=== PATIENT | male | born 1960 | race Caucasian/White ===

== ENCOUNTER 2023-11-29 07:58 | Day surgery (SDC) | payer BC ==
[2023-11-29] MEDS ORDERED: Phenylephrine 0.5% Nasal Spray 15 ML Bot NAS ONE (07:59)
[2023-11-29] MEDS ORDERED: Lidocaine 2% 100 MG/5 ML Syringe IVPUSH ONE (07:59)
[2023-11-29] MEDS ORDERED: Propofol 200 MG/20 ML SDV IV ONE (07:59)
[2023-11-29] MEDS ORDERED: Sodium Chloride 0.9% 10 ML Syringe FLUSH PRN (08:15)
[2023-11-29] MEDS: Lactated Ringers 1,000 ML IV SCH (09:31)
[2023-11-29] MEDS: Simethicone Drops 40 MG/0.6 ML 30 ML Bottle ONE (11:15)
== END 2023-11-29 12:20 | disposition home or self-care (01) ==
LOC: FB.SDS 07:58
PROVIDERS: ATTEND Surgery
DX: D12.6 Benign neoplasm of colon, unspecified (principal); K57.31 Diverticulosis of large intestine without perforation or abscess with bleeding; I10 Essential (primary) hypertension; E78.5 Hyperlipidemia, unspecified; Z80.0 Family history of malignant neoplasm of digestive organs
CPT/HCPCS: 00811; 45385; 88305; A9270; J2704; J7120